=== PATIENT | male | born 1955 ===

== ENCOUNTER 2023-01-01 06:00 | Outpatient (RCR) | payer MEDICARE, SELFPAY | END 2023-01-21 23:59 | disposition home or self-care (01) | LOC: GPT 06:00 | PROVIDERS: Visit Provider Orthopaedic Surgery | DX: S43.492D Other sprain of left shoulder joint, subsequent encounter (principal); X58.XXXD Exposure to other specified factors, subsequent encounter | CPT/HCPCS: 97110; 97112; 97140; 97161; 97530 ==

== ENCOUNTER 2023-01-22 06:00 | Outpatient (RCR) | payer MEDICARE, SELFPAY | END 2023-02-21 23:59 | disposition home or self-care (01) | LOC: GPT 06:00 | PROVIDERS: Visit Provider Orthopaedic Surgery | DX: S43.492D Other sprain of left shoulder joint, subsequent encounter (principal); X58.XXXD Exposure to other specified factors, subsequent encounter | CPT/HCPCS: 97110; 97140 ==

== ENCOUNTER 2023-02-22 06:00 | Outpatient (RCR) | payer MEDICARE, SELFPAY | END 2023-03-23 23:59 | disposition home or self-care (01) | LOC: GPT 06:00 | PROVIDERS: Visit Provider Orthopaedic Surgery | DX: S43.492D Other sprain of left shoulder joint, subsequent encounter (principal); X58.XXXD Exposure to other specified factors, subsequent encounter | CPT/HCPCS: 97110; 97112; 97140; 97164 ==

== ENCOUNTER 2023-08-05 06:00 | Outpatient (RCR) | payer MEDICARE, SELFPAY | END 2023-08-22 23:59 | disposition home or self-care (01) | LOC: GPT 06:00 | PROVIDERS: Visit Provider Orthopaedic Surgery | DX: Z47.89 Encounter for other orthopedic aftercare (principal) | CPT/HCPCS: 97110; 97112; 97140; 97161 ==

== ENCOUNTER 2023-08-23 06:00 | Outpatient (RCR) | payer MEDICARE, SELFPAY | END 2023-09-22 23:59 | disposition home or self-care (01) | LOC: GPT 06:00 | PROVIDERS: Visit Provider Orthopaedic Surgery | DX: Z98.890 Other specified postprocedural states (principal) | CPT/HCPCS: 97110; 97140; 97530 ==

== ENCOUNTER 2023-09-23 06:00 | Outpatient (RCR) | payer MEDICARE, SELFPAY | END 2023-09-24 23:59 | disposition home or self-care (01) | LOC: GPT 06:00 | PROVIDERS: Visit Provider Orthopaedic Surgery | DX: Z98.890 Other specified postprocedural states (principal) | CPT/HCPCS: 97110; 97530 ==